=== PATIENT | male | born 1965 | race Caucasian/White ===

== ENCOUNTER 2021-12-12 16:35 | Emergency (ER) | payer OTHER ==
[~2021-12-12] VITALS: Ht 177.8 cm; Wt 81.6 kg
[2021-12-12] MEDS ORDERED: SYMTUZA 800-151 EACH (17:04)
[2021-12-12] MEDS ORDERED: ZITHROMAX500 MG PO (19:06)
== END 2021-12-12 19:52 | disposition home or self-care (01) ==
LOC: ER 16:35
DX: J06.9 Acute upper respiratory infection, unspecified (principal); Z20.822 Contact with and (suspected) exposure to COVID-19; Z88.6 Allergy status to analgesic agent; Z88.0 Allergy status to penicillin